=== PATIENT | female | born 1960 | race Caucasian/White ===

== ENCOUNTER → 2016-10-05 | Outpatient (CLI) | payer OTHER ==
[~2016-10-05] MED LIST: ALBUTEROL2.5 MG/0.5 INH; ALLEGRA D 12 HO1 TER PO; AMOCLAN PO; AMOXICILLIN500 MG PO; ASPIRIN CHEWABL81 M1 PO; ATENOLOL25 MG PO; ATIVAN0.5 MG PO; AUGMENTIN 875 M1 TAB PO; AUGMENTIN400 MG/5 M PO; CARDIZEM30 MG PO; CEFUROXIME AXE250 MG PO; CLARITIN; CLARITIN10 MG PO; COMBIVENT RESPIM4 GM INH; COMBIVENT1 AR1 IH; COMBIVENT1 ARO; DILTIAZEM 24HR120 MG PO; DULCOLAX10 MG PO; DUONEB 3 MG/3 ML3 M1 INH; ELIQUIS5 M1 PO; FOLIC ACID1 MG PO; KEFLEX500 MG PO; LEVAQUIN750 MG PO; LEXAPRO10 MG PO; MEDROL DOSEPAK4 MG PO; METHOTREXATE2.5 M1 PO; MOTRIN800 MG PO; MYLICON, MYLANT80 MG PO; NKHM; PERCOCET 325 MG1 TA2 PO; PLAQUENIL200 MG PO; PREDNISONE10 MG PO; PREDNISONE2.5 MG PO; PRILOSEC20 M2 PO; STOOL SOFTENER; ULTRAM50 MG PO; VITAMIN D32000 IU PO; ZOFRAN4 MG PO
== END | disposition home or self-care (01) ==
LOC: US 03:07
DX: N94.89 Other specified conditions associated with female genital organs and menstrual cycle (principal)

== ENCOUNTER 2017-03-16 03:52 | Emergency (ER) | payer OTHER ==
[~2017-03-16] VITALS: Ht 162.5 cm; Wt 77.1 kg
[2017-03-16] MEDS ORDERED: AMOXICILLIN500 M2 PO (04:35)
[2017-03-16] MEDS ORDERED: VENTOLIN 02.5 MG/3 M INH (04:40)
== END 2017-03-16 04:52 | disposition home or self-care (01) ==
LOC: ED 03:52
DX: J02.9 Acute pharyngitis, unspecified (principal); J01.00 Acute maxillary sinusitis, unspecified; I48.91 Unspecified atrial fibrillation; J45.909 Unspecified asthma, uncomplicated; K21.9 Gastro-esophageal reflux disease without esophagitis; Z98.890 Other specified postprocedural states; Z90.89 Acquired absence of other organs; Z88.1 Allergy status to other antibiotic agents; Z88.5 Allergy status to narcotic agent; Z88.6 Allergy status to analgesic agent; Z87.891 Personal history of nicotine dependence

== ENCOUNTER → 2017-06-01 | Outpatient (CLI) | payer OTHER ==
[~2017-06-01] MED LIST changes: +AMOXICILLIN500 M2 PO; +VENTOLIN 02.5 MG/3 M INH
[2017-06-01 08:50] LABS: HEMATOCRIT 41.3 % (37.0-47.0); HEMOGLOBIN 13.7 g/dl (12.0-16.0); MEAN CELL VOLUME 87.7 fl (81.0-99.0); MEAN CORPUSCULAR HGB 29.1 pg (27.0-31.0); MEAN CORPUSCULAR HGB CONC 33.2 g/dl (33.0-37.0); MEAN PLATELET VOLUME 10.2 fl (9.6-12.3); RED BLOOD COUNT 4.71 10*6/uL (4.10-5.10); RED CELL DISTRI WIDTH 12.2 % (0-14.5)
[2017-06-02 08:16] LABS: RHEUMATOID ARTHRITIS FACTOR 12.4 IU/mL (0.0-13.9)
== END | disposition home or self-care (01) ==
LOC: LAB 08:28
PROVIDERS: Family Medicine
DX: F41.1 Generalized anxiety disorder (principal); E74.00 Glycogen storage disease, unspecified; E55.9 Vitamin D deficiency, unspecified; M25.50 Pain in unspecified joint; M79.1 Myalgia

== ENCOUNTER → 2017-06-05 | Outpatient (CLI) | payer OTHER | END | disposition home or self-care (01) | LOC: LAB 10:35 | DX: R76.0 Raised antibody titer (principal) ==

== ENCOUNTER 2017-09-16 21:15 | Inpatient (IN) | payer OTHER ==
[2017-09-16] VITALS (24 sets, daily range): BP systolic 106–145; BP diastolic 41–108
[~2017-09-16] VITALS: Ht 165.1 cm; Wt 75.8 kg
--- NOTE | ~2017-09-16 | CON ---
[place], [place] REPORT OF CONSULTATION NAME: DAMIEN CASTILLO UNIT #: [id number] ROOM: 404 DOCTOR: REENA BELCHER MD BIRTHDATE: [birth year] DOS: HISTORY OF PRESENT ILLNESS: This is a 56-year-old -Citizen Of [place] woman with a history of paroxysmal atrial fibrillation that was initially diagnosed in fall of 2015. She also has essential hypertension and COPD, but she has never had a stroke, heart attack, heart failure. She had a stress echocardiogram done about a couple of years ago which did not demonstrate any ischemia. LV systolic function was normal. Valvular structure was also normal. Her thyroid workup was unremarkable. She was at home and had ____ to eat and soon thereafter she tells me her heart took off and started beating very fast and would not settle down. She came to the emergency department where her heart rate was found to be 150. She was started with IV medication, which has been discontinued and now her heart rate is well controlled. She has no palpitation now. She did not have any chest pain or dizziness or sweating with the rapid heart rate and previously she has not had any PND, orthopnea, or swelling of the lower extremities. SOCIAL HISTORY: She quit smoking a very long time ago. Does not use alcoholic beverages. HOME MEDICATIONS: Apixaban or Eliquis 5 mg b.i.d. and albuterol aerosol treatments q.i.d. She had been on Cardizem previously because of slow heart rate. She has not been taking it. PHYSICAL EXAMINATION: GENERAL: This is a patient who is very pleasant, alert. VITAL SIGNS: Pulse is about 64 and irregular, blood pressure 134/50. NECK: Normal JVP. AJR is negative. CARDIAC: Auscultation with no murmurs or rubs and good pedal pulses. EXTREMITIES: There is no edema in the lower extremity. RESPIRATORY: She is not tachypneic. Percussion was normal. Auscultation was fairly good breath sounds bilaterally without any adventitious sounds. ABDOMEN: Supple, nontender. LABORATORY DATA: An ECG showed atrial fibrillation with rapid rate of 146 upon arrival and now heart rate is in the 50s and 60s on the monitor. IMPRESSION: This patient has a persistent/permanent atrial fibrillation. She has not been treated with electrical cardioversion or any antiarrhythmics, according to her. This patient has controlled ventricular rate now. From cardiac standpoint, she may be discharged. She does have diltiazem at home and I have told her that if her heart rate speeds up, she can take 1 pill and wait for a couple of hours to see if the heart rate would slow down. I thank you on behalf of Dr. Hampton for this consult. [place], [place] REPORT OF CONSULTATION NAME: DAMIEN CASTILLO UNIT #: [id number] ROOM: 404 DOCTOR: REENA BELCHER MD BIRTHDATE: [birth year] REENA BELCHER MD CM:CONSTR:REPORT OF CONSULTATION 1438 09/17/17 9849 interface SULEMA ENRIQUEZ MD
--- NOTE | ~2017-09-16 | WRIGHTHP ---
[place], [place] PATIENT HISTORY AND PHYSICAL EXAM NAME: DAMIEN CASTILLO UNIT #: [id number] ROOM: 404 DOCTOR: SULEMA ENRIQUEZ MD BIRTHDATE: [birth year] DOS: 09/16/2017 HISTORY OF PRESENT ILLNESS: The patient is 56 years old. The patient states that she was feeling good yesterday. She decided to eat a couple of chocolate covered ice cream on a stick along with a malt milkshake. As soon as she started eating, she started experiencing rapid heart rate which persisted, so decided to come into the Emergency Room. She was found to be in rapid AFib with a heart rate of 140s and the patient was admitted. She did not have any complaints of chest pains, palpitations this morning. Denies having any fever or chills. The patient was last hospitalized a year ago with a similar admission for bradycardia. She denies having any abdominal pain, nausea, any emesis. PAST MEDICAL HISTORY: Significant for: 1. Paroxysmal atrial fibrillation. 2. Mild intermittent asthma. MEDICATIONS: She is on is Eliquis 2.5 b.i.d. SOCIAL HISTORY: History of smoking. Denies using any alcohol. She works as a nurse at [employer]. PHYSICAL EXAMINATION: GENERAL: She is awake and alert and oriented this morning in no distress. VITAL SIGNS: Graphic trend shows a pressure of 142/70, pulse of 86 regular, respirations 14. LUNGS: Clear. HEART: Regular. ABDOMEN: Obese, soft. EXTREMITIES: Without any edema. ASSESSMENT AND PLAN: The patient with atrial fibrillation with rapid ventricular response, was admitted and she seems to have converted to sinus rhythm, as most likely being related to the increased intake of caffeine and chocolate yesterday. The patient is encouraged not to eat those in the future. Cardiology consultation was obtained. The patient already is on anticoagulants to prevent strokes. Troponin levels have all come back negative. The patient may be discharged to home today after Cardiology sees her. [place], [place] PATIENT HISTORY AND PHYSICAL EXAM NAME: DAMIEN CASTILLO UNIT #: [id number] ROOM: 404 DOCTOR: SULEMA ENRIQUEZ MD BIRTHDATE: [birth year] SULEMA ENRIQUEZ MD CM:ALISHAS:PATIENT HISTORY AND PHYSICAL EXAMINATION [id number] SULEMA ENRIQUEZ MD 09/17/17 0752 interface
[2017-09-16 21:37] LABS: BASO % 0.5 % (0.0-1.0); EOS # 0.4 10*3/uL (0.0-0.4); EOS % 5.3 % (1.0-4.0); HEMATOCRIT 41.8 % (37.0-47.0); HEMOGLOBIN 13.6 g/dl (12.0-16.0); LYMPH # 2.8 10*3/uL (1.3-4.4); LYMPH % 35.1 % (27.0-41.0); MEAN CELL VOLUME 86.5 fl (81.0-99.0); MEAN CORPUSCULAR HGB 28.2 pg (27.0-31.0); MEAN CORPUSCULAR HGB CONC 32.5 g/dl (33.0-37.0); MEAN PLATELET VOLUME 10.6 fl (9.6-12.3); MONO # 0.5 10*3/uL (0.1-1.0); MONO % 6.6 % (3.0-9.0); NEUT # 4.1 10*3/uL (2.3-7.9); NEUT % 52.2 % (47.0-73.0); PLATELET COUNT AUTOMATED 351 10*3/uL (130-400); RED BLOOD COUNT 4.83 10*6/uL (4.10-5.10); RED CELL DISTRI WIDTH 12.8 % (0-14.5); WHITE BLOOD COUNT 7.9 10*3/uL (4.8-10.8)
[2017-09-16 21:47] LABS: INTERNATIONAL NORM RATIO 0.9 (2.0-3.5)
[2017-09-16 21:55] LABS: ALBUMIN 3.4 gm/dl (3.1-4.5); ALKALINE PHOSPHATASE 97 U/L (45-117); BUN 20 mg/dl (7-24); CHLORIDE 107 mmol/L (98-107); CREATININE 1.06 mg/dL (0.55-1.02); POTASSIUM 3.5 mmol/L (3.5-5.1); SGOT/AST 19 IU/L (3-35); SGPT/ALT 21 U/L (12-78); SODIUM 140 mmol/L (136-145); TOTAL PROTEIN 7.3 gm/dL (6.4-8.2)
[2017-09-16 21:58] LABS: TROPONIN I < 0.015 ng/ml (<0.045)
[2017-09-17] VITALS (10 sets, daily range): BP systolic 91–134; BP diastolic 50–82
== END 2017-09-17 14:55 | disposition home or self-care (01) | DRG 310 ==
LOC: ED 21:15 → EDHOLD 23:47 → 4E 23:51
PROVIDERS: Emergency Medicine
DX: I48.91 Unspecified atrial fibrillation (principal); F41.9 Anxiety disorder, unspecified; J44.9 Chronic obstructive pulmonary disease, unspecified; Z88.1 Allergy status to other antibiotic agents; Z88.8 Allergy status to other drugs, medicaments and biological substances

== ENCOUNTER → 2017-10-16 | Outpatient (CLI) | payer OTHER | END | disposition home or self-care (01) | LOC: LAB 10-14 03:37 | DX: N39.0 Urinary tract infection, site not specified (principal) ==

== ENCOUNTER → 2017-12-20 | Outpatient (CLI) | payer OTHER | END | disposition home or self-care (01) | LOC: LAB 14:46 | PROVIDERS: Family Medicine | DX: M25.50 Pain in unspecified joint (principal) ==

== ENCOUNTER → 2017-12-27 | Outpatient (CLI) | payer OTHER | END | disposition home or self-care (01) | LOC: US 00:25 | DX: R10.819 Abdominal tenderness, unspecified site (principal); Z90.710 Acquired absence of both cervix and uterus ==

== ENCOUNTER 2018-04-13 16:38 | Emergency (ER) | payer OTHER ==
[~2018-04-13] VITALS: Ht 165.1 cm; Wt 76.2 kg
== END 2018-04-13 17:47 | disposition home or self-care (01) ==
LOC: ED 16:38
DX: S82.64XA Nondisplaced fracture of lateral malleolus of right fibula, initial encounter for closed fracture (principal); I48.91 Unspecified atrial fibrillation; Z98.890 Other specified postprocedural states; Z88.6 Allergy status to analgesic agent; Z88.8 Allergy status to other drugs, medicaments and biological substances; Z88.5 Allergy status to narcotic agent; Z88.1 Allergy status to other antibiotic agents; Z87.891 Personal history of nicotine dependence; W01.0XXA Fall on same level from slipping, tripping and stumbling without subsequent striking against object, initial encounter; Y93.89 Activity, other specified; Y92.89 Other specified places as the place of occurrence of the external cause; Y99.9 Unspecified external cause status

== ENCOUNTER → 2018-04-18 | Outpatient (CLI) | payer OTHER ==
--- NOTE | ~2018-04-18 | HM ---
[place], [place] HOLTER MONITOR REPORT NAME: DAMIEN CASTILLO UNIT #: [id number] ROOM: DOCTOR: PANTERA FITZPATRICK MD BIRTHDATE: [birth year] DOS: 04/23/2018 HOLTER MONITOR The patient remained in sinus rhythm throughout the entire period. Minimum heart rate is 42 with a maximum heart rate of 108 with an average rate of 69 beats per minute. No significant bradycardic episodes are present. No evidence of atrial fibrillation and also the patient in sinus rhythm throughout the entire procedure with one episode of sinus bradycardia. Isolated PVCs are present. No ventricular or supraventricular dysrhythmia. No significant pauses present. FINAL IMPRESSION: Grossly normal sinus rhythm with one episode of sinus bradycardia at 42 beats per minute. Overall, the average rate is 69 beats per minute. No significant pauses. Isolated PACs, no other ventricular or supraventricular dysrhythmia. PANTERA FITZPATRICK MD CM:HOLTER:HOLTER MONITOR REPORT [id number] PANTERA FITZPATRICK MD
== END | disposition home or self-care (01) ==
LOC: CARD 09:30
DX: R00.1 Bradycardia, unspecified (principal)

== ENCOUNTER → 2018-04-27 | Outpatient (CLI) | payer OTHER ==
[2018-04-27 06:15] LABS: HEMATOCRIT 42.6 % (37.0-47.0); MEAN CELL VOLUME 87.1 fl (81.0-99.0); MEAN CORPUSCULAR HGB 28.6 pg (27.0-31.0); MEAN CORPUSCULAR HGB CONC 32.9 g/dl (33.0-37.0); MEAN PLATELET VOLUME 10.3 fl (9.6-12.3); RED BLOOD COUNT 4.89 10*6/uL (4.10-5.10); RED CELL DISTRI WIDTH 12.2 % (0-14.5); WHITE BLOOD COUNT 6.5 10*3/uL (4.8-10.8)
[2018-04-27 06:29] LABS: ALBUMIN 3.4 gm/dl (3.1-4.5); BUN 20 mg/dl (7-24); CHLORIDE 106 mmol/L (98-107); CHOLESTEROL 164 mg/dL (<200); CREATININE 1.03 mg/dL (0.55-1.02); POTASSIUM 3.9 mmol/L (3.5-5.1); SGOT/AST 19 IU/L (3-35); SGPT/ALT 18 U/L (12-78); SODIUM 140 mmol/L (136-145); TOTAL PROTEIN 7.1 gm/dL (6.4-8.2); TRIGLYCERIDES 145 mg/dl (<150); VLDL CHOLESTEROL 29 mg/dL (6-40)
[2018-04-27 06:30] LABS: ALKALINE PHOSPHATASE 92 U/L (45-117); HDL CHOLESTEROL 47 mg/dl (40-60); LDL CHOLESTEROL 88 mg/dL (9-159)
== END | disposition home or self-care (01) ==
LOC: LAB 00:47
PROVIDERS: Family Medicine
DX: E78.00 Pure hypercholesterolemia, unspecified (principal); F41.1 Generalized anxiety disorder; M19.90 Unspecified osteoarthritis, unspecified site; E74.00 Glycogen storage disease, unspecified

== ENCOUNTER → 2018-09-05 | Outpatient (CLI) | payer BC ==
[~2018-09-05] MED LIST changes: +ELIQUIS2.5 M1 PO; +PROPAFENONE HC150 MG PO
[2018-09-05 13:49] LABS: ALBUMIN 3.6 gm/dl (3.1-4.5); CREATININE 1.15 mg/dL (0.55-1.02); POTASSIUM 4.1 mmol/L (3.5-5.1); TOTAL PROTEIN 7.9 gm/dL (6.4-8.2)
[2018-09-05 14:25] LABS: VITAMIN D, 25-HYDROXY 17.5 ng/mL (30-100)
== END | disposition home or self-care (01) ==
LOC: LAB 11:29
PROVIDERS: Family Medicine
DX: I48.91 Unspecified atrial fibrillation (principal); R53.83 Other fatigue; R00.2 Palpitations

== ENCOUNTER → 2018-10-09 | Outpatient (CLI) | payer BC | END | disposition home or self-care (01) | LOC: RAD 10:58 | DX: R07.89 Other chest pain (principal); R05 Cough; R09.89 Other specified symptoms and signs involving the circulatory and respiratory systems; I48.91 Unspecified atrial fibrillation; J45.909 Unspecified asthma, uncomplicated; Z87.891 Personal history of nicotine dependence ==

== ENCOUNTER → 2018-10-23 | Outpatient (CLI) | payer BC | END | disposition home or self-care (01) | LOC: MAMMO 10-09 14:30 | DX: N63.10 Unspecified lump in the right breast, unspecified quadrant (principal); N63.20 Unspecified lump in the left breast, unspecified quadrant ==

== ENCOUNTER → 2019-02-08 | Outpatient (CLI) | payer BC ==
[2019-02-08 07:57] LABS: HEMATOCRIT 42.8 % (37.0-47.0); HEMOGLOBIN 13.6 g/dl (12.0-16.0); MEAN CELL VOLUME 90.3 fl (81.0-99.0); MEAN CORPUSCULAR HGB 28.7 pg (27.0-31.0); MEAN CORPUSCULAR HGB CONC 31.8 g/dl (33.0-37.0); MEAN PLATELET VOLUME 11.2 fl (9.6-12.3); RED BLOOD COUNT 4.74 10*6/uL (4.10-5.10); RED CELL DISTRI WIDTH 12.5 % (0-14.5); WHITE BLOOD COUNT 6.4 10*3/uL (4.8-10.8)
[2019-02-08 08:13] LABS: ALBUMIN 3.3 gm/dl (3.1-4.5); ALKALINE PHOSPHATASE 90 U/L (45-117); BUN 17 mg/dl (7-24); CHLORIDE 108 mmol/L (98-107); CHOLESTEROL 167 mg/dL (<200); CREATININE 0.99 mg/dL (0.55-1.02); HDL CHOLESTEROL 40 mg/dl (40-60); LDL CHOLESTEROL 98 mg/dL (9-159); POTASSIUM 3.9 mmol/L (3.5-5.1); SGOT/AST 16 IU/L (3-35); SGPT/ALT 24 U/L (12-78); SODIUM 140 mmol/L (136-145); TOTAL PROTEIN 7.1 gm/dL (6.4-8.2); TRIGLYCERIDES 144 mg/dl (<150); VLDL CHOLESTEROL 29 mg/dL (6-40)
[2019-02-13 09:50] LABS: HEPATITIS B SURFACE AG Negative (Negative); HEPATITIS C VIRUS ANTIBODY <0.1 s/co (0.0-0.9)
== END | disposition home or self-care (01) ==
LOC: LAB 06:30
PROVIDERS: Family Medicine
DX: F41.1 Generalized anxiety disorder (principal); R41.3 Other amnesia; E55.9 Vitamin D deficiency, unspecified

== ENCOUNTER 2019-04-21 01:54 | Emergency (ER) | payer BC ==
[~2019-04-21] VITALS: Ht 162.5 cm; Wt 83.9 kg
[2019-04-21 02:20] LABS: BASO % 0.3 % (0.0-1.0); HEMATOCRIT 45.3 % (37.0-47.0); HEMOGLOBIN 14.7 g/dl (12.0-16.0); LYMPH % 9.6 % (27.0-41.0); MEAN CELL VOLUME 87.8 fl (81.0-99.0); MEAN CORPUSCULAR HGB 28.5 pg (27.0-31.0); MEAN CORPUSCULAR HGB CONC 32.5 g/dl (33.0-37.0); MEAN PLATELET VOLUME 10.6 fl (9.6-12.3); MONO # 0.2 10*3/uL (0.1-1.0); MONO % 1.4 % (3.0-9.0); NEUT # 9.4 10*3/uL (2.3-7.9); NEUT % 88.5 % (47.0-73.0); PLATELET COUNT AUTOMATED 347 10*3/uL (130-400); RED BLOOD COUNT 5.16 10*6/uL (4.10-5.10); RED CELL DISTRI WIDTH 12.5 % (0-14.5); WHITE BLOOD COUNT 10.6 10*3/uL (4.8-10.8)
[2019-04-21 02:30] LABS: ACT PARTIAL THROMBO TIME 26.2 SECONDS (20.0-32.1); INTERNATIONAL NORM RATIO 0.9 (2.0-3.5)
[2019-04-21 02:37] LABS: ALBUMIN 3.8 gm/dl (3.1-4.5); ALKALINE PHOSPHATASE 114 U/L (45-117); BUN 26 mg/dl (7-24); CHLORIDE 106 mmol/L (98-107); CREATININE 1.07 mg/dL (0.55-1.02); POTASSIUM 3.9 mmol/L (3.5-5.1); SGOT/AST 14 IU/L (3-35); SGPT/ALT 23 U/L (12-78); SODIUM 137 mmol/L (136-145); TOTAL PROTEIN 8.1 gm/dL (6.4-8.2)
[2019-04-21 02:38] LABS: TROPONIN I < 0.015 ng/ml (<0.045)
== END 2019-04-21 06:03 | disposition home or self-care (01) ==
LOC: ED 01:54
PROVIDERS: Emergency Medicine Emergency Medical Services
DX: R00.2 Palpitations (principal); I48.91 Unspecified atrial fibrillation; M06.9 Rheumatoid arthritis, unspecified; J44.9 Chronic obstructive pulmonary disease, unspecified; Z88.8 Allergy status to other drugs, medicaments and biological substances; Z88.1 Allergy status to other antibiotic agents; Z79.899 Other long term (current) drug therapy

== ENCOUNTER 2019-06-06 02:38 | Inpatient (IN) | payer BC ==
[~2019-06-06] VITALS: Ht 162.6 cm; Wt 85.3 kg
--- NOTE | ~2019-06-06 | ST ---
[place], [place] EXERCISE STRESS TEST REPORT NAME: DAMIEN CASTILLO UNIT #: [id number] ROOM: 504 DOCTOR: NELLI FRANK MD BIRTHDATE: [birth year] DOS: 06/06/2019 STUDY: Lexiscan Cardiolite stress test. ORDERING PHYSICIAN: Her boiler setter, Dr. Hampton. REASON FOR STUDY: Complaints of chest pains. Presently she is admitted to a monitored bed with negative cardiac enzymes. The patient is a 58-year-old female, 64 inches tall, weighing 188 pounds. The patient was injected with Lexiscan 0.4 mg, followed 40 seconds later by a nuclear injection. Baseline EKG showed normal sinus rhythm with some PACs. No significant EKG abnormality at the heart rate of 63 beats per minute, normal cardiac axis, no significant ST-T changes during the stress. In recovery phase, the patient did not develop any significant EKG abnormality or symptoms compatible with angina. Normal EKG part of the Lexiscan Cardiolite stress test. Cardiolite results to be reported by Dr. Hampton later today. NELLI FRANK MD CM:STRESS:EXERCISE STRESS TEST REPORT [id number] NELLI FRANK MD
--- NOTE | ~2019-06-06 | WRIGHTHP ---
[place], [place] PATIENT HISTORY AND PHYSICAL EXAM [id number] UNIT #: [id number] ROOM: 504 DOCTOR: NELLI FRANK MD BIRTHDATE: [birth year] DOS: 06/06/2019 HISTORY OF PRESENT ILLNESS: The patient is a 58-year-old female who started having chest pains, recurrent, precordial without significant nausea, diaphoresis or shortness of breath off and on for the last 3 days. The patient was admitted through the Emergency Department and was ruled out for myocardial infarction with serial cardiac enzyme and taken for a cardiac stress test this morning, which is in progress. The patient is without chest pain symptoms now. SYSTEMS REVIEW: RESPIRATORY: No increasing shortness of breath. GASTROINTESTINAL: No nausea, vomiting, diarrhea, constipation. CARDIOVASCULAR: The patient has chronic atrial fibrillation. She had chest pains. FAMILY HISTORY: Noncontributory. HOME MEDICATIONS: Apixaban. ALLERGIES: Known allergies to PLAQUENIL, CEPHALOSPORINS, ERYTHROMYCIN, TETRACYCLINE, IBUPROFEN and PREDNISONE. FAMILY HISTORY: Noncontributory. PHYSICAL EXAMINATION: GENERAL APPEARANCE: Alert, oriented x 3. HEENT AND NECK: Extraocular movements are intact. Sclerae are anicteric. Oral mucosa is moist and clean. No obvious facial weakness. Neck is supple without any lymphadenopathy. No thyromegaly. No JVD. No carotid arterial bruits. LUNGS: Clear to auscultation. No wheezing. No rhonchi. CARDIOVASCULAR SYSTEM: The patient's heart rate was irregularly irregular in rate and rhythm. S1 and S2 normally audible. ABDOMEN: Soft, nontender. No obvious organomegaly. Bowel sounds are present. No obvious herniation. EXTREMITIES: Without significant cyanosis or edema. Warm to touch. CENTRAL NERVOUS SYSTEM: Alert and oriented x 3. Cranial nerves II-XII are intact. Speech is normal. The patient is able to move all extremities. Normal muscle strength. Deep tendon reflexes are equal on both sides. Plantars were downgoing. LABORATORY DATA: Negative cardiac enzymes. Troponin I levels x 3 were all normal. Normal serum electrolytes, normal CBC. IMPRESSION: 1. The patient with history of chronic atrial fibrillation, anticoagulated with apixaban at a lower dose because she was bruising significantly and she discussed with Dr. Hampton, her geriatric psychiatrist, and was given half the dose and she has done well with it. 2. Recurrent chest pains from uncertain etiology. The patient is being taken for cardiac stress test as recommended by her geriatric psychiatrist, Dr. Hampton, who is on [place], [place] PATIENT HISTORY AND PHYSICAL EXAM NAME: DAMIEN CASTILLO UNIT #: [id number] ROOM: [facility] DOCTOR: MONIKA DHILLON,NELLI Yañez BIRTHDATE: [birth year] consult. The patient is chest pain free now and her cardiac enzymes were negative. If stress test was normal, she can be discharged home to follow up with her primary care physician, Dr. Bogdan Mota, and her geriatric psychiatrist, Dr. Hampton, soon after discharge. NELLI FRANK MD CM:HISPHYS:PATIENT HISTORY AND PHYSICAL EXAMINATION [id number] NELLI FRANK MD 06/06/19 1105 interface
--- NOTE | ~2019-06-06 | EKG ---
[place], [place] ELECTROCARDIOGRAM REPORT NAME: DAMIEN CASTILLO UNIT #: [id number] ROOM: 504 DOCTOR: HOANG DRAFT REPORT BIRTHDATE: [birth year] [facility] [place] Test Date: 2019-06-06 Test Time: 03:45:59 Pat Name: DAMIEN CASTILLO Department: Room: [facility] Gender: F Assisted Living Coordinator: Pili Fuentes : 1960 Requested By: CORRIE CARMONA Order Number: [id number] Reading MD: Keith Martin MD Measurements Intervals [place] Rate: 58 P: 10 WY: 141 QRS: -8 QRSD: 102 T: 32 QT: 435 QTc: 428 Interpretive Statements Sinus rhythm Multiple premature complexes, vent \T\ supraven Low voltage, precordial leads Baseline wander in lead(s) V4 Compared to ECG 04/21/2019 04:12:29 No significant changes Electronically Signed On 06-06-2019 14:43:53 PST by Keith Martin MD CM:EKGRPT:ELECTROCARDIOGRAM REPORT [id number] CORRIE SNOW DRAFT REPORT CORRIE CARMONA DO
[2019-06-06 02:44] VITALS: BP 146/69
[2019-06-06 03:18] LABS: BASO # 0.1 10*3/uL (0.0-0.1); BASO % 0.8 % (0.0-1.0); EOS # 0.3 10*3/uL (0.0-0.4); EOS % 4.6 % (1.0-4.0); HEMATOCRIT 43.4 % (37.0-47.0); HEMOGLOBIN 14.2 g/dl (12.0-16.0); LYMPH % 26.9 % (27.0-41.0); MEAN CELL VOLUME 87.9 fl (81.0-99.0); MEAN CORPUSCULAR HGB 28.7 pg (27.0-31.0); MEAN CORPUSCULAR HGB CONC 32.7 g/dl (33.0-37.0); MEAN PLATELET VOLUME 10.3 fl (9.6-12.3); MONO # 0.5 10*3/uL (0.1-1.0); MONO % 6.9 % (3.0-9.0); NEUT # 4.5 10*3/uL (2.3-7.9); NEUT % 60.7 % (47.0-73.0); PLATELET COUNT AUTOMATED 305 10*3/uL (130-400); RED BLOOD COUNT 4.94 10*6/uL (4.10-5.10); RED CELL DISTRI WIDTH 12.6 % (0-14.5); WHITE BLOOD COUNT 7.4 10*3/uL (4.8-10.8)
[2019-06-06 03:28] LABS: INTERNATIONAL NORM RATIO 0.9 (2.0-3.5)
[2019-06-06 03:35] LABS: ALBUMIN 3.4 gm/dl (3.1-4.5); ALKALINE PHOSPHATASE 101 U/L (45-117); BUN 20 mg/dl (7-24); CHLORIDE 109 mmol/L (98-107); CREATININE 1.08 mg/dL (0.55-1.02); POTASSIUM 3.7 mmol/L (3.5-5.1); SGOT/AST 19 IU/L (3-35); SGPT/ALT 25 U/L (12-78); SODIUM 140 mmol/L (136-145); TOTAL PROTEIN 7.4 gm/dL (6.4-8.2)
[2019-06-06 03:50] LABS: TROPONIN I < 0.015 ng/ml (<0.045)
[2019-06-06 04:16] VITALS: BP 126/56
[2019-06-06 05:05] VITALS: BP 130/52
[2019-06-06] MEDS ORDERED: ELIQUIS2.5 M1 PO (05:12)
== END 2019-06-06 11:53 | disposition home or self-care (01) | DRG 313 ==
LOC: ED 02:38 → EDHOLD 04:48 → 5E 05:08
PROVIDERS: Emergency Medicine; ADMIT Internal Medicine
DX: R07.9 Chest pain, unspecified (principal); F41.9 Anxiety disorder, unspecified; J44.9 Chronic obstructive pulmonary disease, unspecified; I48.20 Chronic atrial fibrillation, unspecified; Z88.8 Allergy status to other drugs, medicaments and biological substances; Z79.899 Other long term (current) drug therapy; Z82.49 Family history of ischemic heart disease and other diseases of the circulatory system; Z83.3 Family history of diabetes mellitus; Z79.01 Long term (current) use of anticoagulants

== ENCOUNTER 2019-06-19 01:15 | Inpatient (IN) | payer BC ==
[~2019-06-19] VITALS: Ht 162.5 cm; Wt 84.9 kg
[2019-06-19 01:17] VITALS: BP 170/71
[2019-06-19 01:50] LABS: BASO # 0.1 10*3/uL (0.0-0.1); EOS # 0.4 10*3/uL (0.0-0.4); HEMATOCRIT 39.8 % (37.0-47.0); LYMPH # 2.2 10*3/uL (1.3-4.4); LYMPH % 30.2 % (27.0-41.0); MEAN CELL VOLUME 88.8 fl (81.0-99.0); MEAN CORPUSCULAR HGB CONC 32.7 g/dl (33.0-37.0); MEAN PLATELET VOLUME 10.9 fl (9.6-12.3); MONO # 0.5 10*3/uL (0.1-1.0); MONO % 6.5 % (3.0-9.0); NEUT # 4.2 10*3/uL (2.3-7.9); PLATELET COUNT AUTOMATED 298 10*3/uL (130-400); RED BLOOD COUNT 4.48 10*6/uL (4.10-5.10); RED CELL DISTRI WIDTH 12.7 % (0-14.5); WHITE BLOOD COUNT 7.3 10*3/uL (4.8-10.8)
[2019-06-19 02:00] LABS: ACT PARTIAL THROMBO TIME 27.2 SECONDS (20.0-32.1); INTERNATIONAL NORM RATIO 0.9 (2.0-3.5)
[2019-06-19 02:06] LABS: ALBUMIN 3.3 gm/dl (3.1-4.5); ALKALINE PHOSPHATASE 90 U/L (45-117); BUN 21 mg/dl (7-24); CHLORIDE 113 mmol/L (98-107); POTASSIUM 3.7 mmol/L (3.5-5.1); SGOT/AST 17 IU/L (3-35); SGPT/ALT 20 U/L (12-78); SODIUM 143 mmol/L (136-145)
[2019-06-19 02:10] LABS: TROPONIN I < 0.015 ng/ml (<0.045)
[2019-06-19 02:20] VITALS: BP 152/76
[2019-06-19 03:01] VITALS: BP 131/48
--- NOTE | 2019-06-19 03:01 | NUR ---
PT IS RESTING IN ROOM WITH LIGHTS DIMMED.
[2019-06-19 04:15] VITALS: BP 139/64
--- NOTE | 2019-06-19 04:15 | NUR ---
A 58, admitted to , under the services of SULEMA Trinidad MD with a diagnosis of SYMPTOMATIC BRADYCARDIA. Chief complaint is LIGHT HEADED. Patient arrived via bed from ER. Monitor applied. Initial assessment completed. Vital signs taken and recorded. SULEMA TRINIDAD MD notified of admission to the unit. Orders received. See assessment for past medical history, medications and allergies. Patient and/or family oriented to unit. Clothing/patient valuable form completed. DUGLAS GEORGES
--- NOTE | 2019-06-19 05:57 | NUR ---
MADE AWARE OF PATIENT ADMITTED TO FLOOR/HOME MEDS VERIFIED. STATES TO CONSULT CARDIOLOGY.
--- NOTE | 2019-06-19 06:09 | NUR ---
ANSWERING SERVICES CALLED FOR CELI, STATED HE WILL BE PAGED.
--- NOTE | 2019-06-19 07:49 | NUR ---
PT RESTING IN BED, WATCHING TV AT THIS TIME. LAB CAME TO GET TROPONIN VALUES AT 0715. NIRMALA LE
--- NOTE | 2019-06-19 08:45 | NUR ---
DR. FITZPATRICK PAGED PER DR. ENRIQUEZ ORDER. PATIENT TO BED DISCHARGED TO HOME IF OF WITH DR. FITZPATRICK.
[2019-06-19 08:49] VITALS: BP 130/66
--- NOTE | 2019-06-19 09:18 | NUR ---
DR. NANETTE SMALL WITH DISCHARGE.
--- NOTE | 2019-06-19 09:35 | NUR ---
PT IS SITTING ON THE SIDE OF THE BED EATING BREAKFAST. NO COMPLAINTS AT THIS TIME. NIRMALA [facility]
--- NOTE | 2019-06-19 09:50 | NUR ---
IV SITE D/C'D, SITE ASYMPTOMATIC, DRESSING APPLIED NIRMALA [facility]
--- NOTE | 2019-06-19 10:10 | NUR ---
Discharge instructions reviewed with patient/family. Patient receptive and verbalizes understanding. Follow-up care arranged. Written instructions given to patient/family, pt discharged via ambulation to car in care of boyfriend, student accompanied pt to door, condition stable, Geraldine E[facility]
== END 2019-06-19 10:10 | disposition home or self-care (01) | DRG 309 ==
LOC: ED 01:15 → EDHOLD 03:42 → 4E 04:03
PROVIDERS: Emergency Medicine; ADMIT Internal Medicine
DX: I49.5 Sick sinus syndrome (principal); I48.21 Permanent atrial fibrillation; J45.909 Unspecified asthma, uncomplicated; Z79.01 Long term (current) use of anticoagulants; Z88.6 Allergy status to analgesic agent; Z88.1 Allergy status to other antibiotic agents; Z82.49 Family history of ischemic heart disease and other diseases of the circulatory system; Z83.3 Family history of diabetes mellitus

== ENCOUNTER → 2019-09-06 | Outpatient (CLI) | payer BC ==
[2019-09-06 08:28] LABS: HEMATOCRIT 45.4 % (37.0-47.0); HEMOGLOBIN 14.5 g/dl (12.0-16.0); MEAN CELL VOLUME 89.4 fl (81.0-99.0); MEAN CORPUSCULAR HGB 28.5 pg (27.0-31.0); MEAN CORPUSCULAR HGB CONC 31.9 g/dl (33.0-37.0); MEAN PLATELET VOLUME 11.1 fl (9.6-12.3); RED BLOOD COUNT 5.08 10*6/uL (4.10-5.10); RED CELL DISTRI WIDTH 12.6 % (0-14.5); WHITE BLOOD COUNT 6.7 10*3/uL (4.8-10.8)
[2019-09-06 08:56] LABS: ALBUMIN 3.6 gm/dl (3.1-4.5); ALKALINE PHOSPHATASE 100 U/L (45-117); BUN 22 mg/dl (7-24); CHLORIDE 108 mmol/L (98-107); CHOLESTEROL 196 mg/dL (<200); CREATININE 1.07 mg/dL (0.55-1.02); HDL CHOLESTEROL 43 mg/dl (40-60); LDL CHOLESTEROL 126 mg/dL (9-159); POTASSIUM 4.4 mmol/L (3.5-5.1); SGOT/AST 17 IU/L (3-35); SGPT/ALT 26 U/L (12-78); SODIUM 141 mmol/L (136-145); TOTAL PROTEIN 7.5 gm/dL (6.4-8.2); TRIGLYCERIDES 134 mg/dl (<150); VLDL CHOLESTEROL 27 mg/dL (6-40)
== END | disposition home or self-care (01) ==
LOC: LAB 06:49
PROVIDERS: Family Medicine
DX: M47.816 Spondylosis without myelopathy or radiculopathy, lumbar region (principal); M48.061 Spinal stenosis, lumbar region without neurogenic claudication; E78.00 Pure hypercholesterolemia, unspecified; E55.9 Vitamin D deficiency, unspecified; I48.91 Unspecified atrial fibrillation

== ENCOUNTER 2020-02-07 16:01 | Inpatient (IN) | payer BC ==
[~2020-02-07] VITALS: Ht 162.5 cm; Wt 82.8 kg
[2020-02-07 16:09] VITALS: BP 153/68
[2020-02-07 16:36] LABS: BASO # 0.1 10*3/uL (0.0-0.1); BASO % 0.7 % (0.0-1.0); EOS # 0.3 10*3/uL (0.0-0.4); EOS % 3.6 % (1.0-4.0); HEMATOCRIT 44.3 % (37.0-47.0); LYMPH # 1.5 10*3/uL (1.3-4.4); LYMPH % 21.1 % (27.0-41.0); MEAN CELL VOLUME 86.7 fl (81.0-99.0); MEAN CORPUSCULAR HGB CONC 32.3 g/dl (33.0-37.0); MEAN PLATELET VOLUME 10.6 fl (9.6-12.3); MONO # 0.6 10*3/uL (0.1-1.0); MONO % 8.3 % (3.0-9.0); NEUT # 4.8 10*3/uL (2.3-7.9); PLATELET COUNT AUTOMATED 284 10*3/uL (130-400); RED BLOOD COUNT 5.11 10*6/uL (4.10-5.10); RED CELL DISTRI WIDTH 12.6 % (0-14.5); WHITE BLOOD COUNT 7.2 10*3/uL (4.8-10.8)
[2020-02-07 16:47] LABS: INTERNATIONAL NORM RATIO 0.9 (2.0-3.5)
[2020-02-07 17:03] LABS: ALBUMIN 3.5 gm/dl (3.1-4.5); ALKALINE PHOSPHATASE 93 U/L (45-117); BUN 19 mg/dl (7-24); CHLORIDE 109 mmol/L (98-107); SGOT/AST 22 IU/L (3-35); SGPT/ALT 31 U/L (12-78); SODIUM 140 mmol/L (136-145); TOTAL PROTEIN 7.9 gm/dL (6.4-8.2)
[2020-02-07 17:06] LABS: TROPONIN I < 0.015 ng/ml (<0.045)
[2020-02-07] MEDS ORDERED: ASPIRIN CHEWABL81 MG PO (18:42)
[2020-02-07] MEDS ORDERED: PRILOSEC20 M1 PO (18:43)
--- NOTE | 2020-02-07 18:50 | NUR ---
[facility] , under the services of Dr. MONIKA DHILLON,NELLI Yañez with a diagnosis of CHEST [PAIN. Chief complaint is CHEST PAIN. Patient arrived via bed from ER. Monitor applied. Initial assessment completed. Vital signs taken and recorded. DR. MONIKA DHILLON,NELLI Yañez notified of admission to the unit. Orders received. See assessment for past medical history, medications and allergies. Patient and/or family oriented to unit. [facility] visitation policy reviewed. Clothing/patient valuable form completed. TAWNY MAZARIEGOS
--- NOTE | 2020-02-07 18:58 | NUR ---
DR. YU'S ANSWERING SERVICE NOTIFIED OF CONSULT.
[2020-02-07 20:00] VITALS: BP 127/73
[2020-02-08] VITALS: BP 124/63
--- NOTE | 2020-02-08 06:15 | NUR ---
PATIENT STATES THAT SHE FEELS MUCH BETTER THIS MORNING. THAT SHE FEELS ITS NOT HER HEART BUT HER ESOPHAGUS.
[2020-02-08 08:00] VITALS: BP 129/59
--- NOTE | 2020-02-08 11:19 | NUR ---
Broth Setter in to talk to patient. Patient states lives at HOME with BOYFRIEND. There are 1 steps in the home. Physician: BRENDA [facility] Home health services: NONE Patient's level of ADLs: INDEPENDENT Patient has working utilities: YES DME: NONE Follow-up physician's appointment after d/c: WILL BE MADE BY HOSPITALIST NURSE DIRECTOR ON DISCHARGE Does patient want to access PORTAL?: NO Discharge plan PT LIVES AT HOME WITH HER BOYFRIEND AND IS INDEPENDENT IN HER CARE. DISCUSSED NEED FOR HOME HEALTH ON DISCHARGE BUT PT DECLINES AT THIS TIME. WILL CONTINUE TO FOLLOW. PT PLAN IS TO RETURN HOME ON DISCHARGE WHEN MEDICALLY STABLE. PT STATES SHE WILL HAVE A RIDE HOME. MAYRA POLANCO
[2020-02-08 12:00] VITALS: BP 117/63
--- NOTE | 2020-02-08 15:33 | NUR ---
[facility] Discharge instructions reviewed with patient/family. Patient receptive and verbalizes understanding. Follow-up care arranged. Written instructions given to patient/family. TAWNY MAZARIEGOS
== END 2020-02-08 15:33 | disposition home or self-care (01) | DRG 206 ==
LOC: ED 16:01 → EDHOLD 18:07 → 4E 18:30
PROVIDERS: Internal Medicine; ADMIT Internal Medicine
DX: M94.0 Chondrocostal junction syndrome [Tietze] (principal); Z88.1 Allergy status to other antibiotic agents; Z88.8 Allergy status to other drugs, medicaments and biological substances

== ENCOUNTER → 2020-07-09 | Outpatient (CLI) | payer BC ==
[~2020-07-09] MED LIST changes: +ASPIRIN CHEWABL81 MG PO; +PRILOSEC20 M1 PO
[2020-07-09 09:50] LABS: MEAN CELL VOLUME 87.5 fl (81.0-99.0); MEAN PLATELET VOLUME 10.6 fl (9.6-12.3); RED BLOOD COUNT 5.03 10*6/uL (4.10-5.10); RED CELL DISTRI WIDTH 12.5 % (0-14.5)
[2020-07-09 10:20] LABS: ALBUMIN 3.6 gm/dl (3.1-4.5); ALKALINE PHOSPHATASE 98 U/L (45-117); BUN 18 mg/dl (7-24); CHLORIDE 109 mmol/L (98-107); CREATININE 1.01 mg/dL (0.55-1.02); POTASSIUM 3.7 mmol/L (3.5-5.1); SGOT/AST 18 IU/L (3-35); SGPT/ALT 29 U/L (12-78); SODIUM 142 mmol/L (136-145); TOTAL PROTEIN 7.5 gm/dL (6.4-8.2)
== END | disposition home or self-care (01) ==
LOC: LAB 09:31
PROVIDERS: ATTEND Family Medicine
DX: R05 Cough (principal); R06.02 Shortness of breath; R07.9 Chest pain, unspecified

== ENCOUNTER → 2020-08-13 | Outpatient (CLI) | payer BC ==
[~2020-08-13] MED LIST changes: +PROTONIX40 MG PO
== END | disposition home or self-care (01) ==
LOC: RAD 14:02
PROVIDERS: ATTEND Family Medicine
DX: J98.11 Atelectasis (principal); U07.1 COVID-19

== ENCOUNTER → 2020-08-29 | Outpatient (CLI) | payer BC | END | disposition home or self-care (01) | LOC: RAD 00:07 | PROVIDERS: ATTEND Family Medicine | DX: J98.11 Atelectasis (principal); I77.819 Aortic ectasia, unspecified site; Z86.16 Personal history of COVID-19 ==

== ENCOUNTER → 2020-09-16 | Outpatient (CLI) | payer BC | END | disposition home or self-care (01) | LOC: CT 00:22 | PROVIDERS: ATTEND Nurse Practitioner Family | DX: J98.11 Atelectasis (principal); R91.8 Other nonspecific abnormal finding of lung field ==

== ENCOUNTER 2020-11-05 14:05 | Emergency (ER) | payer BC ==
[~2020-11-05] VITALS: Ht 160 cm; Wt 81.6 kg
[~2020-11-05 14:05] MED LIST changes: -PROTONIX40 MG PO
[2020-11-05 14:53] LABS: BASO # 0.1 10*3/uL (0.0-0.1); BASO % 0.7 % (0.0-1.0); EOS # 0.3 10*3/uL (0.0-0.4); EOS % 4.1 % (1.0-4.0); HEMATOCRIT 44.4 % (37.0-47.0); LYMPH # 1.4 10*3/uL (1.3-4.4); LYMPH % 17.5 % (27.0-41.0); MEAN CELL VOLUME 90.2 fl (81.0-99.0); MEAN CORPUSCULAR HGB 28.7 pg (27.0-31.0); MEAN CORPUSCULAR HGB CONC 31.8 g/dl (33.0-37.0); MEAN PLATELET VOLUME 10.6 fl (9.6-12.3); MONO # 0.4 10*3/uL (0.1-1.0); MONO % 5.2 % (3.0-9.0); NEUT # 5.8 10*3/uL (2.3-7.9); NEUT % 72.3 % (47.0-73.0); PLATELET COUNT AUTOMATED 324 10*3/uL (130-400); RED BLOOD COUNT 4.92 10*6/uL (4.10-5.10); RED CELL DISTRI WIDTH 12.5 % (0-14.5); WHITE BLOOD COUNT 8.1 10*3/uL (4.8-10.8)
[2020-11-05 15:04] LABS: ACT PARTIAL THROMBO TIME 24.2 SECONDS (20.0-32.1)
[2020-11-05 15:10] LABS: ALBUMIN 3.4 gm/dl (3.1-4.5); ALKALINE PHOSPHATASE 103 U/L (45-117); BUN 20 mg/dl (7-24); CHLORIDE 107 mmol/L (98-107); CREATININE 1.09 mg/dL (0.55-1.02); POTASSIUM 3.9 mmol/L (3.5-5.1); SGOT/AST 17 IU/L (3-35); SGPT/ALT 30 U/L (12-78); SODIUM 137 mmol/L (136-145); TOTAL PROTEIN 7.5 gm/dL (6.4-8.2)
[2020-11-05 15:27] LABS: TROPONIN I < 0.015 ng/ml (<0.045)
[2020-11-05 16:46] LABS: BILIRUBIN Negative (Negative); BLOOD Negative (Negative); CLARITY Clear (Clear); COLOR Yellow (Yellow); GLUCOSE Negative (Negative); KETONE Negative (Negative); LEUKO ESTERASE Negative (Negative); NITRITE Negative (Negative); UROBILINOGEN 0.2 E.U./dl (0.0-1.0)
[2020-11-05 17:37] LABS: HYALINE CAST 0-2; MUCOUS 1+
[2020-11-05 17:38] LABS: BACTERIA 1+; RBC 0-2 rbc/hpf (0-2); WBC 0-2 wbc/hpf (0-5)
[2020-11-05] MEDS ORDERED: PROTONIX40 MG PO (18:33)
== END 2020-11-05 19:03 ==
LOC: ED 14:05
PROVIDERS: Emergency Medicine
DX: K21.9 Gastro-esophageal reflux disease without esophagitis (principal); K29.00 Acute gastritis without bleeding; Z98.890 Other specified postprocedural states; Z88.1 Allergy status to other antibiotic agents; Z88.6 Allergy status to analgesic agent; Z88.8 Allergy status to other drugs, medicaments and biological substances; Z79.82 Long term (current) use of aspirin

== ENCOUNTER 2020-12-22 19:39 | Emergency (ER) | payer BC ==
[~2020-12-22] VITALS: Ht 167.6 cm; Wt 74.4 kg
[~2020-12-22 19:39] MED LIST changes: +PROTONIX40 MG PO
[2020-12-22 20:31] LABS: BILIRUBIN Negative (Negative); BLOOD Negative (Negative); CLARITY Clear (Clear); COLOR Yellow (Yellow); GLUCOSE Negative (Negative); KETONE Negative (Negative); LEUKO ESTERASE Negative (Negative); NITRITE Negative (Negative); PH 6.5 (4.5-8.0); UROBILINOGEN 0.2 E.U./dl (0.0-1.0)
[2020-12-22 20:47] LABS: BACTERIA TRACE; EPITHELIAL CELLS 21-30; MUCOUS TRACE; WBC 0-2 wbc/hpf (0-5)
[2020-12-22 21:35] LABS: BASO # 0.1 10*3/uL (0.0-0.1); BASO % 0.5 % (0.0-1.0); EOS # 0.2 10*3/uL (0.0-0.4); EOS % 1.8 % (1.0-4.0); HEMATOCRIT 41.9 % (37.0-47.0); LYMPH # 1.4 10*3/uL (1.3-4.4); LYMPH % 11.2 % (27.0-41.0); MEAN CELL VOLUME 88.4 fl (81.0-99.0); MEAN CORPUSCULAR HGB 28.9 pg (27.0-31.0); MEAN CORPUSCULAR HGB CONC 32.7 g/dl (33.0-37.0); MEAN PLATELET VOLUME 11.1 fl (9.6-12.3); MONO # 0.8 10*3/uL (0.1-1.0); MONO % 6.5 % (3.0-9.0); NEUT # 9.9 10*3/uL (2.3-7.9); NEUT % 79.7 % (47.0-73.0); PLATELET COUNT AUTOMATED 324 10*3/uL (130-400); RED BLOOD COUNT 4.74 10*6/uL (4.10-5.10); RED CELL DISTRI WIDTH 12.4 % (0-14.5); WHITE BLOOD COUNT 12.5 10*3/uL (4.8-10.8)
[2020-12-22 21:49] LABS: ALBUMIN 3.3 gm/dl (3.1-4.5); ALKALINE PHOSPHATASE 107 U/L (45-117); BUN 15 mg/dl (7-24); CHLORIDE 106 mmol/L (98-107); POTASSIUM 3.8 mmol/L (3.5-5.1); SGOT/AST 13 IU/L (3-35); SGPT/ALT 21 U/L (12-78); SODIUM 135 mmol/L (136-145); TOTAL PROTEIN 7.7 gm/dL (6.4-8.2)
[2020-12-22] MEDS ORDERED: MIRALAX POWDER17 G1 PO (22:08)
== END 2020-12-22 22:25 | disposition home or self-care (01) ==
LOC: ED 19:39
PROVIDERS: Internal Medicine
DX: K59.00 Constipation, unspecified (principal); D72.829 Elevated white blood cell count, unspecified; Z88.8 Allergy status to other drugs, medicaments and biological substances; Z79.899 Other long term (current) drug therapy

== ENCOUNTER → 2021-06-15 | Outpatient (CLI) | payer BC ==
[~2021-06-15] MED LIST changes: +MIRALAX POWDER17 G1 PO
== END | disposition home or self-care (01) ==
LOC: RAD 16:05
PROVIDERS: ATTEND Family Medicine
DX: J84.10 Pulmonary fibrosis, unspecified (principal); R91.8 Other nonspecific abnormal finding of lung field; R07.9 Chest pain, unspecified; R05.9 Cough, unspecified

== ENCOUNTER 2021-08-12 00:28 | Observation (INO) | payer OTHER ==
[2021-08-12] VITALS (25 sets, daily range): BP systolic 91–168; BP diastolic 45–101
[~2021-08-12] VITALS: Ht 162.5 cm; Wt 84.5 kg
[2021-08-12 00:57] LABS: BASO # 0.1 10*3/uL (0.0-0.1); BASO % 0.9 % (0.0-1.0); EOS # 0.4 10*3/uL (0.0-0.4); EOS % 5.6 % (1.0-4.0); LYMPH # 2.8 10*3/uL (1.3-4.4); LYMPH % 35.8 % (27.0-41.0); MEAN CELL VOLUME 86.8 fl (81.0-99.0); MEAN CORPUSCULAR HGB 28.8 pg (27.0-31.0); MEAN CORPUSCULAR HGB CONC 33.2 g/dl (33.0-37.0); MEAN PLATELET VOLUME 10.6 fl (9.6-12.3); MONO # 0.6 10*3/uL (0.1-1.0); MONO % 7.5 % (3.0-9.0); NEUT % 49.9 % (47.0-73.0); PLATELET COUNT AUTOMATED 308 10*3/uL (130-400); RED BLOOD COUNT 5.07 10*6/uL (4.10-5.10); RED CELL DISTRI WIDTH 12.4 % (0-14.5); WHITE BLOOD COUNT 7.9 10*3/uL (4.8-10.8)
[2021-08-12 01:09] LABS: ACT PARTIAL THROMBO TIME 25.4 SECONDS (20.0-32.1); INTERNATIONAL NORM RATIO 0.9 (2.0-3.5)
[2021-08-12 01:13] LABS: ALBUMIN 3.4 gm/dl (3.1-4.5); ALKALINE PHOSPHATASE 96 U/L (45-117); BUN 20 mg/dl (7-24); CHLORIDE 110 mmol/L (98-107); CREATININE 1.02 mg/dL (0.55-1.02); POTASSIUM 3.6 mmol/L (3.5-5.1); SGOT/AST 17 IU/L (3-35); SGPT/ALT 23 U/L (12-78); SODIUM 140 mmol/L (136-145); TOTAL PROTEIN 7.3 gm/dL (6.4-8.2)
[2021-08-13] VITALS: BP 99/42
[2021-08-13 08:00] VITALS: BP 115/40
[2021-08-13 12:00] VITALS: BP 138/72
[2021-08-13] MEDS ORDERED: ELIQUIS5 M1 PO (12:08)
== END 2021-08-13 14:51 | disposition home or self-care (01) ==
LOC: ED 00:28 → 5E 04:32 → EDHOLD 04:32 → 5E 16:45
PROVIDERS: Emergency Medicine; ADMIT Internal Medicine; ATTEND Internal Medicine
DX: I49.5 Sick sinus syndrome (principal); R00.2 Palpitations; I48.0 Paroxysmal atrial fibrillation; K21.9 Gastro-esophageal reflux disease without esophagitis; J45.909 Unspecified asthma, uncomplicated; E66.01 Morbid (severe) obesity due to excess calories; Z79.899 Other long term (current) drug therapy; Z20.822 Contact with and (suspected) exposure to COVID-19; Z79.01 Long term (current) use of anticoagulants; Z68.32 Body mass index [BMI] 32.0-32.9, adult

== ENCOUNTER → 2021-09-01 | Outpatient (CLI) | payer OTHER ==
[2021-09-01 07:46] LABS: THYROXINE (T4) TOTAL 9.4 ug/dl (4.8-13.9)
[2021-09-01 07:54] LABS: THYROID STIM HORMONE (HS) 2.63 uIU/ml (0.358-4.75)
== END | disposition home or self-care (01) ==
LOC: LAB 00:07
PROVIDERS: ATTEND Internal Medicine
DX: E78.2 Mixed hyperlipidemia (principal); E03.9 Hypothyroidism, unspecified

== ENCOUNTER → 2021-09-06 | Outpatient (CLI) | payer OTHER | END | disposition home or self-care (01) | LOC: RAD 14:21 | PROVIDERS: ATTEND Internal Medicine | DX: R07.81 Pleurodynia (principal) ==

== ENCOUNTER → 2021-09-29 | Outpatient (CLI) | payer OTHER | END | disposition home or self-care (01) | LOC: CARD 09-28 13:07 | PROVIDERS: ATTEND Internal Medicine | DX: Z51.81 Encounter for therapeutic drug level monitoring (principal); Z79.899 Other long term (current) drug therapy ==

== ENCOUNTER → 2021-10-04 | Outpatient (CLI) | payer OTHER | END | disposition home or self-care (01) | LOC: RAD 09-20 13:30 | PROVIDERS: ATTEND Internal Medicine | DX: Z12.31 Encounter for screening mammogram for malignant neoplasm of breast (principal); M85.88 Other specified disorders of bone density and structure, other site; M81.0 Age-related osteoporosis without current pathological fracture ==

== ENCOUNTER 2021-10-31 09:02 | Emergency (ER) | payer OTHER ==
[~2021-10-31] VITALS: Ht 162.5 cm; Wt 84.4 kg
[2021-10-31] MEDS ORDERED: FLECAINIDE ACE100 M1 PO (09:10)
[2021-10-31 09:19] LABS: BASO # 0.1 10*3/uL (0.0-0.1); EOS # 0.3 10*3/uL (0.0-0.4); EOS % 4.1 % (1.0-4.0); HEMATOCRIT 43.8 % (37.0-47.0); LYMPH # 1.5 10*3/uL (1.3-4.4); LYMPH % 21.7 % (27.0-41.0); MEAN CELL VOLUME 86.6 fl (81.0-99.0); MEAN CORPUSCULAR HGB 28.9 pg (27.0-31.0); MEAN CORPUSCULAR HGB CONC 33.3 g/dl (33.0-37.0); MEAN PLATELET VOLUME 10.5 fl (9.6-12.3); MONO # 0.4 10*3/uL (0.1-1.0); MONO % 5.8 % (3.0-9.0); NEUT # 4.8 10*3/uL (2.3-7.9); NEUT % 67.3 % (47.0-73.0); PLATELET COUNT AUTOMATED 348 10*3/uL (130-400); RED BLOOD COUNT 5.06 10*6/uL (4.10-5.10); RED CELL DISTRI WIDTH 12.7 % (0-14.5); WHITE BLOOD COUNT 7.1 10*3/uL (4.8-10.8)
[2021-10-31 09:45] LABS: ALKALINE PHOSPHATASE 92 U/L (45-117); BUN 20 mg/dl (7-24); CHLORIDE 111 mmol/L (98-107); CREATININE 1.28 mg/dL (0.55-1.02); SGOT/AST 27 IU/L (3-35); SGPT/ALT 28 U/L (12-78); SODIUM 140 mmol/L (136-145); TOTAL PROTEIN 7.4 gm/dL (6.4-8.2)
[2021-10-31] MEDS ORDERED: TYLENOL325 M1 PO (11:30)
== END 2021-10-31 11:32 | disposition home or self-care (01) ==
LOC: ED 09:02
PROVIDERS: Emergency Medicine
DX: R07.89 Other chest pain (principal); K21.9 Gastro-esophageal reflux disease without esophagitis; I48.91 Unspecified atrial fibrillation; Z79.899 Other long term (current) drug therapy; Z88.1 Allergy status to other antibiotic agents; Z88.6 Allergy status to analgesic agent; Z79.01 Long term (current) use of anticoagulants

== ENCOUNTER → 2021-11-30 | Outpatient (CLI) | payer OTHER ==
[~2021-11-30] MED LIST changes: +FLECAINIDE ACE100 M1 PO; +TYLENOL325 M1 PO
== END | disposition home or self-care (01) ==
LOC: CARD 01:27
PROVIDERS: ATTEND Internal Medicine Cardiovascular Disease
DX: R94.31 Abnormal electrocardiogram [ECG] [EKG] (principal)

== ENCOUNTER → 2021-12-30 | Outpatient (CLI) | payer OTHER ==
[2021-12-30 07:34] LABS: BASO % 0.6 % (0.0-1.0); EOS # 0.3 10*3/uL (0.0-0.4); EOS % 4.5 % (1.0-4.0); HEMATOCRIT 44.7 % (37.0-47.0); LYMPH # 1.6 10*3/uL (1.3-4.4); LYMPH % 23.7 % (27.0-41.0); MEAN CELL VOLUME 90.5 fl (81.0-99.0); MEAN CORPUSCULAR HGB 29.8 pg (27.0-31.0); MEAN CORPUSCULAR HGB CONC 32.9 g/dl (33.0-37.0); MEAN PLATELET VOLUME 10.8 fl (9.6-12.3); MONO # 0.5 10*3/uL (0.1-1.0); MONO % 6.9 % (3.0-9.0); NEUT # 4.4 10*3/uL (2.3-7.9); NEUT % 64.2 % (47.0-73.0); PLATELET COUNT AUTOMATED 300 10*3/uL (130-400); RED BLOOD COUNT 4.94 10*6/uL (4.10-5.10); RED CELL DISTRI WIDTH 12.6 % (0-14.5); WHITE BLOOD COUNT 6.8 10*3/uL (4.8-10.8)
[2021-12-30 08:00] LABS: CREATININE 1.13 mg/dL (0.55-1.02); POTASSIUM 4.2 mmol/L (3.5-5.1); TOTAL PROTEIN 7.5 gm/dL (6.4-8.2)
[2021-12-30 08:01] LABS: FREE T4 1.15 ng/dl (0.76-1.46)
[2021-12-30 08:06] LABS: THYROID STIM HORMONE (HS) 2.88 uIU/ml (0.358-4.75)
[2021-12-30 09:36] LABS: VITAMIN D, 25-HYDROXY 25.2 ng/mL (30-100)
== END | disposition home or self-care (01) ==
LOC: LAB 01:29
PROVIDERS: ATTEND Internal Medicine
DX: Z13.6 Encounter for screening for cardiovascular disorders (principal); Z13.89 Encounter for screening for other disorder; Z13.820 Encounter for screening for osteoporosis; Z13.9 Encounter for screening, unspecified; E55.9 Vitamin D deficiency, unspecified; Z13.0 Encounter for screening for diseases of the blood and blood-forming organs and certain disorders involving the immune mechanism; Z13.1 Encounter for screening for diabetes mellitus; Z13.21 Encounter for screening for nutritional disorder; Z13.220 Encounter for screening for lipoid disorders; Z13.228 Encounter for screening for other metabolic disorders

== ENCOUNTER → 2022-04-08 | Outpatient (CLI) | payer OTHER | END | disposition home or self-care (01) | LOC: US 01-21 13:30 | PROVIDERS: ATTEND Internal Medicine | DX: R94.4 Abnormal results of kidney function studies (principal) ==

== ENCOUNTER → 2022-05-10 | Outpatient (CLI) | payer OTHER ==
[2022-05-10 13:07] LABS: BASO # 0.1 10*3/uL (0.0-0.1); BASO % 0.7 % (0.0-1.0); EOS # 0.3 10*3/uL (0.0-0.4); EOS % 3.4 % (1.0-4.0); HEMATOCRIT 44.4 % (37.0-47.0); LYMPH # 1.9 10*3/uL (1.3-4.4); MEAN CELL VOLUME 90.1 fl (81.0-99.0); MEAN CORPUSCULAR HGB 29.6 pg (27.0-31.0); MEAN CORPUSCULAR HGB CONC 32.9 g/dl (33.0-37.0); MEAN PLATELET VOLUME 10.7 fl (9.6-12.3); MONO # 0.4 10*3/uL (0.1-1.0); MONO % 4.5 % (3.0-9.0); NEUT # 5.6 10*3/uL (2.3-7.9); NEUT % 68.2 % (47.0-73.0); PLATELET COUNT AUTOMATED 340 10*3/uL (130-400); RED BLOOD COUNT 4.93 10*6/uL (4.10-5.10); RED CELL DISTRI WIDTH 12.3 % (0-14.5); WHITE BLOOD COUNT 8.2 10*3/uL (4.8-10.8)
[2022-05-10 13:28] LABS: CREATININE 1.23 mg/dL (0.55-1.02); POTASSIUM 3.7 mmol/L (3.5-5.1); TOTAL PROTEIN 7.4 gm/dL (6.4-8.2)
[2022-05-10 13:33] LABS: FREE T4 1.13 ng/dl (0.76-1.46); THYROID STIM HORMONE (HS) 1.44 uIU/ml (0.358-4.75)
[2022-05-10 15:04] LABS: VITAMIN D, 25-HYDROXY 13.2 ng/mL (30-100)
== END ==
LOC: LAB 12:41
PROVIDERS: ATTEND Internal Medicine
DX: Z13.220 Encounter for screening for lipoid disorders (principal); Z13.228 Encounter for screening for other metabolic disorders; Z13.6 Encounter for screening for cardiovascular disorders; Z13.89 Encounter for screening for other disorder; Z13.21 Encounter for screening for nutritional disorder; Z13.1 Encounter for screening for diabetes mellitus; Z13.0 Encounter for screening for diseases of the blood and blood-forming organs and certain disorders involving the immune mechanism; R53.81 Other malaise; R79.89 Other specified abnormal findings of blood chemistry; E55.9 Vitamin D deficiency, unspecified; D52.9 Folate deficiency anemia, unspecified

== ENCOUNTER → 2022-08-02 | Outpatient (CLI) | payer OTHER ==
[2022-08-02 07:51] LABS: BUN 20 mg/dl (9-23); CHLORIDE 104 mmol/L (98-107); POTASSIUM 4.5 mmol/L (3.4-5.1)
== END | disposition home or self-care (01) ==
LOC: LAB 00:34
PROVIDERS: ATTEND Internal Medicine
DX: R79.89 Other specified abnormal findings of blood chemistry (principal); Z13.0 Encounter for screening for diseases of the blood and blood-forming organs and certain disorders involving the immune mechanism; Z13.1 Encounter for screening for diabetes mellitus; Z13.220 Encounter for screening for lipoid disorders; Z13.21 Encounter for screening for nutritional disorder; Z13.228 Encounter for screening for other metabolic disorders; Z13.29 Encounter for screening for other suspected endocrine disorder; Z13.6 Encounter for screening for cardiovascular disorders; Z13.89 Encounter for screening for other disorder; Z13.9 Encounter for screening, unspecified

== ENCOUNTER → 2022-08-24 | Outpatient (CLI) | payer OTHER | END | disposition home or self-care (01) | LOC: CARD 08:59 | PROVIDERS: ATTEND Internal Medicine Clinical Cardiac Electrophysiology | DX: I49.3 Ventricular premature depolarization (principal); I47.1 Supraventricular tachycardia ==

== ENCOUNTER → 2022-10-01 | Outpatient (CLI) | payer OTHER | END | disposition home or self-care (01) | LOC: RAD 00:09 | PROVIDERS: ATTEND Internal Medicine | DX: J98.11 Atelectasis (principal) ==

== ENCOUNTER 2022-11-02 03:21 | Emergency (ER) | payer OTHER ==
[~2022-11-02] VITALS: Ht 160 cm; Wt 84.4 kg
[2022-11-02 03:48] LABS: BASO % 0.3 % (0.0-1.0); EOS # 0.3 10*3/uL (0.0-0.4); EOS % 2.2 % (1.0-4.0); HEMATOCRIT 42.1 % (37.0-47.0); LYMPH # 1.5 10*3/uL (1.3-4.4); LYMPH % 13.3 % (27.0-41.0); MEAN CORPUSCULAR HGB 29.2 pg (27.0-31.0); MEAN CORPUSCULAR HGB CONC 32.8 g/dl (33.0-37.0); MEAN PLATELET VOLUME 10.2 fl (9.6-12.3); MONO # 0.6 10*3/uL (0.1-1.0); MONO % 4.8 % (3.0-9.0); NEUT # 9.1 10*3/uL (2.3-7.9); NEUT % 79.1 % (47.0-73.0); PLATELET COUNT AUTOMATED 303 10*3/uL (130-400); RED BLOOD COUNT 4.73 10*6/uL (4.10-5.10); RED CELL DISTRI WIDTH 12.4 % (0-14.5); WHITE BLOOD COUNT 11.5 10*3/uL (4.8-10.8)
[2022-11-02 04:03] LABS: ALKALINE PHOSPHATASE 86 U/L (46-116); BUN 15 mg/dl (9-23); CHLORIDE 108 mmol/L (98-107); SGPT/ALT 17 U/L (10-49); TOTAL PROTEIN 6.6 gm/dL (6.0-8.0)
[2022-11-02] MEDS ORDERED: CIPRO500 MG PO (04:38)
[2022-11-02] MEDS ORDERED: METRONIDAZOLE500 M1 PO (04:38)
== END 2022-11-02 04:50 | disposition home or self-care (01) ==
LOC: ED 03:21
PROVIDERS: Internal Medicine
DX: K57.32 Diverticulitis of large intestine without perforation or abscess without bleeding (principal); N18.31 Chronic kidney disease, stage 3a; R11.0 Nausea; M19.90 Unspecified osteoarthritis, unspecified site; F41.9 Anxiety disorder, unspecified; J44.9 Chronic obstructive pulmonary disease, unspecified; Z90.710 Acquired absence of both cervix and uterus; K21.9 Gastro-esophageal reflux disease without esophagitis; I48.91 Unspecified atrial fibrillation; Z88.8 Allergy status to other drugs, medicaments and biological substances; Z88.1 Allergy status to other antibiotic agents; Z88.6 Allergy status to analgesic agent; Z98.890 Other specified postprocedural states

== ENCOUNTER → 2022-11-23 | Outpatient (CLI) | payer OTHER ==
[~2022-11-23] MED LIST changes: +CIPRO500 MG PO; +METRONIDAZOLE500 M1 PO
== END | disposition home or self-care (01) ==
LOC: RAD 01:14
PROVIDERS: ATTEND Internal Medicine
DX: M77.32 Calcaneal spur, left foot (principal); M79.672 Pain in left foot

== ENCOUNTER → 2023-03-28 | Outpatient (CLI) | payer OTHER ==
[~2023-03-28] MED LIST changes: +ONDANSETRON4 MG SL; +SEPTDS PO
== END | disposition home or self-care (01) ==
LOC: MAMMO 15:14
PROVIDERS: ATTEND Internal Medicine
DX: Z12.31 Encounter for screening mammogram for malignant neoplasm of breast (principal); M47.816 Spondylosis without myelopathy or radiculopathy, lumbar region; M25.78 Osteophyte, vertebrae

== ENCOUNTER → 2023-04-24 | Outpatient (CLI) | payer OTHER ==
[2023-04-24 08:42] LABS: ACT PARTIAL THROMBO TIME 25.6 SECONDS (20.0-32.1)
== END | disposition home or self-care (01) ==
LOC: SDC 00:36 → EDSTATUS 09:00 → SDC 11:30
PROVIDERS: Radiology Diagnostic Radiology; ATTEND Internal Medicine
DX: N63.13 Unspecified lump in the right breast, lower outer quadrant (principal); N60.11 Diffuse cystic mastopathy of right breast; R92.8 Other abnormal and inconclusive findings on diagnostic imaging of breast

== ENCOUNTER → 2023-05-05 | Outpatient (CLI) | payer OTHER | END | disposition home or self-care (01) | LOC: RAD 13:22 | PROVIDERS: ATTEND Internal Medicine | DX: M17.11 Unilateral primary osteoarthritis, right knee (principal); M25.461 Effusion, right knee ==

== ENCOUNTER → 2023-05-06 | Outpatient (CLI) | payer OTHER ==
[2023-05-06 07:38] LABS: BASO # 0.1 10*3/uL (0.0-0.1); BASO % 0.8 % (0.0-1.0); EOS # 0.3 10*3/uL (0.0-0.4); EOS % 4.5 % (1.0-4.0); HEMATOCRIT 45.2 % (37.0-47.0); LYMPH # 1.6 10*3/uL (1.3-4.4); LYMPH % 22.9 % (27.0-41.0); MEAN CORPUSCULAR HGB 29.5 pg (27.0-31.0); MEAN CORPUSCULAR HGB CONC 32.7 g/dl (33.0-37.0); MEAN PLATELET VOLUME 10.4 fl (9.6-12.3); MONO # 0.4 10*3/uL (0.1-1.0); NEUT # 4.7 10*3/uL (2.3-7.9); NEUT % 65.5 % (47.0-73.0); PLATELET COUNT AUTOMATED 309 10*3/uL (130-400); RED BLOOD COUNT 5.02 10*6/uL (4.10-5.10); RED CELL DISTRI WIDTH 12.4 % (0-14.5); WHITE BLOOD COUNT 7.2 10*3/uL (4.8-10.8)
== END | disposition home or self-care (01) ==
LOC: LAB 05-05 15:15
PROVIDERS: ATTEND Internal Medicine
DX: R53.1 Weakness (principal)

== ENCOUNTER 2023-07-30 01:49 | Emergency (ER) | payer OTHER ==
[~2023-07-30] VITALS: Ht 167.6 cm; Wt 81.6 kg
[2023-07-30 03:51] LABS: BASO # 0.1 10*3/uL (0.0-0.1); BASO % 0.5 % (0.0-1.0); EOS # 0.3 10*3/uL (0.0-0.4); EOS % 2.6 % (1.0-4.0); HEMATOCRIT 44.1 % (37.0-47.0); LYMPH # 1.1 10*3/uL (1.3-4.4); MEAN CELL VOLUME 91.3 fl (81.0-99.0); MEAN CORPUSCULAR HGB 28.6 pg (27.0-31.0); MEAN CORPUSCULAR HGB CONC 31.3 g/dl (33.0-37.0); MEAN PLATELET VOLUME 10.1 fl (9.6-12.3); MONO # 0.5 10*3/uL (0.1-1.0); MONO % 5.4 % (3.0-9.0); NEUT # 7.7 10*3/uL (2.3-7.9); NEUT % 80.1 % (47.0-73.0); PLATELET COUNT AUTOMATED 306 10*3/uL (130-400); RED BLOOD COUNT 4.83 10*6/uL (4.10-5.10); RED CELL DISTRI WIDTH 12.7 % (0-14.5); WHITE BLOOD COUNT 9.6 10*3/uL (4.8-10.8)
[2023-07-30 04:11] LABS: ALKALINE PHOSPHATASE 92 U/L (46-116); BUN 16 mg/dl (9-23); CHLORIDE 109 mmol/L (98-107); LIPASE 41 U/L (12-53); SGPT/ALT 17 U/L (5-49); TOTAL PROTEIN 7.3 gm/dL (6.0-8.0)
[2023-07-30] MEDS ORDERED: AMOX-CLAV 875-1 EACH PO (04:54)
== END 2023-07-30 05:56 | disposition home or self-care (01) ==
LOC: ED 01:49
PROVIDERS: Internal Medicine
DX: J44.9 Chronic obstructive pulmonary disease, unspecified (principal); M19.90 Unspecified osteoarthritis, unspecified site; F41.9 Anxiety disorder, unspecified; I48.91 Unspecified atrial fibrillation; Z88.8 Allergy status to other drugs, medicaments and biological substances; Z88.1 Allergy status to other antibiotic agents; Z88.6 Allergy status to analgesic agent; Z98.890 Other specified postprocedural states; Z90.710 Acquired absence of both cervix and uterus; F17.210 Nicotine dependence, cigarettes, uncomplicated; Z86.16 Personal history of COVID-19

== ENCOUNTER 2023-08-27 08:21 | Emergency (ER) | payer OTHER ==
[~2023-08-27] VITALS: Ht 160 cm; Wt 87.5 kg
[~2023-08-27 08:21] MED LIST changes: +AMOX-CLAV 875-1 EACH PO
[2023-08-27 08:49] LABS: BASO % 0.5 % (0.0-1.0); EOS # 0.1 10*3/uL (0.0-0.4); EOS % 2.5 % (1.0-4.0); HEMATOCRIT 46.1 % (37.0-47.0); LYMPH # 1.4 10*3/uL (1.3-4.4); LYMPH % 34.7 % (27.0-41.0); MEAN CELL VOLUME 89.7 fl (81.0-99.0); MEAN CORPUSCULAR HGB 28.4 pg (27.0-31.0); MEAN CORPUSCULAR HGB CONC 31.7 g/dl (33.0-37.0); MEAN PLATELET VOLUME 10.6 fl (9.6-12.3); MONO # 0.2 10*3/uL (0.1-1.0); NEUT # 2.3 10*3/uL (2.3-7.9); NEUT % 58.3 % (47.0-73.0); PLATELET COUNT AUTOMATED 276 10*3/uL (130-400); RED BLOOD COUNT 5.14 10*6/uL (4.10-5.10); RED CELL DISTRI WIDTH 12.2 % (0-14.5)
[2023-08-27 08:58] LABS: BILIRUBIN Negative (Negative); BLOOD Negative (Negative); CLARITY Cloudy (Clear); COLOR Yellow (Yellow); GLUCOSE Negative (Negative); KETONE Negative (Negative); LEUKO ESTERASE 2+ (Negative); NITRITE Negative (Negative); PH 5.5 (4.5-8.0); UROBILINOGEN 0.2 E.U./dl (0.0-1.0)
[2023-08-27 09:05] LABS: URINE AMPHETAMINES Negative (1000ng/ml); URINE BARBITURATES Negative (200ng/ml); URINE BENZODIAZEPINES Negative (200ng/ml); URINE CANNABINOIDS (THC) Negative (50ng/ml); URINE COCAINE Negative (300ng/ml); URINE METHADONE Negative (300ng/ml); URINE OPIATES Negative (300ng/ml); URINE PHENCYCLIDINE Negative (25ng/ml)
[2023-08-27 09:19] LABS: ALKALINE PHOSPHATASE 83 U/L (46-116); BUN 15 mg/dl (9-23); CHLORIDE 107 mmol/L (98-107); LIPASE 44 U/L (12-53); POTASSIUM 4.2 mmol/L (3.4-5.1); SGPT/ALT 20 U/L (5-49); TOTAL PROTEIN 7.4 gm/dL (6.0-8.0)
[2023-08-27 09:23] LABS: MUCOUS 2+
[2023-08-27 09:24] LABS: BACTERIA 4+; EPITHELIAL CELLS 21-30
[2023-08-27 09:26] LABS: ETHYL ALCOHOL < 3.0 mg/dl (<3)
[2023-08-27] MEDS ORDERED: AMOX-CLAV600 MG/5 M PO (11:33)
== END 2023-08-27 11:35 | disposition home or self-care (01) ==
LOC: ED 08:21
PROVIDERS: Internal Medicine
DX: J18.9 Pneumonia, unspecified organism (principal); N39.0 Urinary tract infection, site not specified; I48.91 Unspecified atrial fibrillation; Z88.1 Allergy status to other antibiotic agents; Z79.899 Other long term (current) drug therapy; Z79.2 Long term (current) use of antibiotics; Z98.890 Other specified postprocedural states; Z90.721 Acquired absence of ovaries, unilateral

== ENCOUNTER 2023-10-18 05:53 | Emergency (ER) | payer OTHER ==
[~2023-10-18] VITALS: Ht 162.5 cm; Wt 81.6 kg
[~2023-10-18 05:53] MED LIST changes: +AMOX-CLAV600 MG/5 M PO
[2023-10-18] MEDS ORDERED: ACETAMINOPHEN 325 MG TAB PO ONE (06:25)
== END 2023-10-18 06:31 | disposition home or self-care (01) ==
LOC: ED 05:53
DX: M25.562 Pain in left knee (principal); M19.90 Unspecified osteoarthritis, unspecified site; J45.909 Unspecified asthma, uncomplicated; F41.9 Anxiety disorder, unspecified; J44.9 Chronic obstructive pulmonary disease, unspecified; I48.91 Unspecified atrial fibrillation; K21.9 Gastro-esophageal reflux disease without esophagitis; Z88.1 Allergy status to other antibiotic agents; Z88.6 Allergy status to analgesic agent; Z88.8 Allergy status to other drugs, medicaments and biological substances; Z98.890 Other specified postprocedural states; Z90.710 Acquired absence of both cervix and uterus

== ENCOUNTER → 2024-09-09 | Outpatient (CLI) | payer OTHER ==
[2024-09-09 08:29] LABS: POTASSIUM 4.3 mmol/L (3.4-5.1)
== END | disposition home or self-care (01) ==
LOC: LAB 07:48
PROVIDERS: ATTEND Internal Medicine
DX: I10 Essential (primary) hypertension (principal)

== ENCOUNTER → 2024-09-18 | Outpatient (CLI) | payer OTHER | END | disposition home or self-care (01) | LOC: US 02:07 | PROVIDERS: ATTEND Internal Medicine | DX: R92.323 Mammographic fibroglandular density, bilateral breasts (principal); R92.8 Other abnormal and inconclusive findings on diagnostic imaging of breast; R10.9 Unspecified abdominal pain ==

== ENCOUNTER 2024-12-29 08:00 | Emergency (ER) | payer OTHER, MEDICAID ==
[~2024-12-29] VITALS: Ht 162.5 cm; Wt 81.6 kg
[2024-12-29] MEDS ORDERED: Dicyclomine Hydrochloride 20 MG/10 ML OSYR PO STA (08:27)
[2024-12-29] MEDS ORDERED: Lidocaine Hydrochloride 15 ML UDC PO STA (08:27)
[2024-12-29] MEDS ORDERED: MG-AL HYDROXIDE/SIMETICONE 30 ML UDC PO STA (08:27)
[2024-12-29 08:32] LABS: BASO # 0.1 10*3/uL (0.0-0.1); BASO % 0.8 % (0.0-1.0); EOS # 0.4 10*3/uL (0.0-0.4); EOS % 4.2 % (1.0-4.0); HEMATOCRIT 43.7 % (37.0-47.0); MEAN CELL VOLUME 88.8 fl (81.0-99.0); MEAN CORPUSCULAR HGB 29.1 pg (27.0-31.0); MEAN CORPUSCULAR HGB CONC 32.7 g/dl (33.0-37.0); MEAN PLATELET VOLUME 10.5 fl (9.6-12.3); MONO # 0.5 10*3/uL (0.1-1.0); MONO % 5.6 % (3.0-9.0); NEUT # 6.1 10*3/uL (2.3-7.9); NEUT % 68.8 % (47.0-73.0); PLATELET COUNT AUTOMATED 306 10*3/uL (130-400); RED BLOOD COUNT 4.92 10*6/uL (4.10-5.10); RED CELL DISTRI WIDTH 12.9 % (0-14.5); WHITE BLOOD COUNT 8.9 10*3/uL (4.8-10.8)
[2024-12-29 08:40] LABS: ACT PARTIAL THROMBO TIME 27.1 SECONDS (20.0-32.1)
[2024-12-29 08:48] LABS: ALKALINE PHOSPHATASE 92 U/L (46-116); BUN 18 mg/dl (9-23); CHLORIDE 108 mmol/L (98-107); POTASSIUM 3.9 mmol/L (3.4-5.1); SGPT/ALT 16 U/L (5-49); TOTAL PROTEIN 6.9 gm/dL (6.0-8.0)
[2024-12-29] MEDS ORDERED: PROTONIX20 MG PO (10:55)
== END 2024-12-29 11:02 | disposition home or self-care (01) ==
LOC: ED 08:00
PROVIDERS: Internal Medicine
DX: K21.9 Gastro-esophageal reflux disease without esophagitis (principal); R06.02 Shortness of breath; R20.0 Anesthesia of skin; I48.91 Unspecified atrial fibrillation; Z88.1 Allergy status to other antibiotic agents; Z88.6 Allergy status to analgesic agent; Z88.8 Allergy status to other drugs, medicaments and biological substances; Z79.899 Other long term (current) drug therapy; Z98.890 Other specified postprocedural states

== ENCOUNTER → 2025-01-11 | Outpatient (CLI) | payer OTHER, MEDICAID ==
[~2025-01-11] MED LIST changes: +PROTONIX20 MG PO
[2025-01-11 09:32] LABS: BASO % 0.6 % (0.0-1.0); EOS # 0.3 10*3/uL (0.0-0.4); EOS % 4.6 % (1.0-4.0); HEMATOCRIT 44.8 % (37.0-47.0); MEAN CELL VOLUME 89.2 fl (81.0-99.0); MEAN CORPUSCULAR HGB 28.9 pg (27.0-31.0); MEAN CORPUSCULAR HGB CONC 32.4 g/dl (33.0-37.0); MEAN PLATELET VOLUME 10.5 fl (9.6-12.3); MONO # 0.4 10*3/uL (0.1-1.0); MONO % 5.7 % (3.0-9.0); NEUT # 4.3 10*3/uL (2.3-7.9); NEUT % 63.2 % (47.0-73.0); PLATELET COUNT AUTOMATED 336 10*3/uL (130-400); RED BLOOD COUNT 5.02 10*6/uL (4.10-5.10); RED CELL DISTRI WIDTH 12.8 % (0-14.5); WHITE BLOOD COUNT 6.8 10*3/uL (4.8-10.8)
[2025-01-11 09:57] LABS: FREE T4 1.29 ng/dl (0.89-1.76); POTASSIUM 4.3 mmol/L (3.4-5.1); TOTAL PROTEIN 7.1 gm/dL (6.0-8.0)
[2025-01-11 10:04] LABS: VITAMIN D, 25-HYDROXY 30.9 ng/mL (30-100)
== END | disposition home or self-care (01) ==
LOC: LAB 08:47
PROVIDERS: ATTEND Internal Medicine
DX: M54.50 Low back pain, unspecified (principal); E55.9 Vitamin D deficiency, unspecified; D51.9 Vitamin B12 deficiency anemia, unspecified; Z13.0 Encounter for screening for diseases of the blood and blood-forming organs and certain disorders involving the immune mechanism; Z13.1 Encounter for screening for diabetes mellitus; Z13.21 Encounter for screening for nutritional disorder; Z13.220 Encounter for screening for lipoid disorders; Z13.228 Encounter for screening for other metabolic disorders; Z13.6 Encounter for screening for cardiovascular disorders; Z13.89 Encounter for screening for other disorder

== ENCOUNTER → 2025-01-21 | Outpatient (CLI) | payer OTHER, MEDICAID ==
[~2025-01-21] MED LIST changes: +Regadenoson 0.4 MG/5 ML SYR IV ONE; +Technetium Tc 99M Tetrofosmi 0.23 MG KIT IJ SCH
== END | disposition home or self-care (01) ==
LOC: CARD 01-14 07:00
PROVIDERS: ATTEND Internal Medicine Cardiovascular Disease
DX: I49.9 Cardiac arrhythmia, unspecified (principal); I20.9 Angina pectoris, unspecified; R94.31 Abnormal electrocardiogram [ECG] [EKG]

== ENCOUNTER → 2025-02-01 | Outpatient (CLI) | payer OTHER, MEDICAID ==
[~2025-02-01] MED LIST changes: -Regadenoson 0.4 MG/5 ML SYR IV ONE; -Technetium Tc 99M Tetrofosmi 0.23 MG KIT IJ SCH
== END | disposition home or self-care (01) ==
LOC: US 00:27
PROVIDERS: ATTEND Internal Medicine
DX: I10 Essential (primary) hypertension (principal); R79.89 Other specified abnormal findings of blood chemistry

== ENCOUNTER → 2025-02-10 | Outpatient (CLI) | payer OTHER, MEDICAID | END | disposition home or self-care (01) | LOC: RAD 00:40 | PROVIDERS: ATTEND Internal Medicine | DX: M85.89 Other specified disorders of bone density and structure, multiple sites (principal); Z78.0 Asymptomatic menopausal state ==

== ENCOUNTER → 2025-05-12 | Outpatient (CLI) | payer OTHER, MEDICAID | END | disposition home or self-care (01) | LOC: RAD 11:35 | PROVIDERS: ATTEND Internal Medicine | DX: J98.11 Atelectasis (principal); R06.02 Shortness of breath ==